=== PATIENT | female | born 1995 | race Caucasian/White ===

== ENCOUNTER 2019-06-03 08:50 | Inpatient (IN) | payer OTHER, BC ==
[2019-06-03] MEDS ORDERED: hydrOXYzine HCl 25 MG Tab PO PRN (10:31)
[2019-06-03] MEDS: Ondansetron 4 MG/2 ML SDV IVPUSH PRN ×2 (11:45→20:59)
[2019-06-03] MEDS ORDERED: Butorphanol 2 MG/ML SDV IVPUSH PRN ×2 (11:51)
[2019-06-03] MEDS ORDERED: Acetaminophen 325 MG Tab PO PRN (11:51)
[2019-06-03] MEDS ORDERED: Carboprost Tromethamine 250 MCG/1 ML Amp IM PRN (11:51)
[2019-06-03] MEDS ORDERED: Tranexamic Acid 1,000 MG in Sodium Chloride 0.9% 100 ML IV PRN (11:51)
[2019-06-03] MEDS ORDERED: Lidocaine 1% 30 ML SDV INJECT PRN (11:51)
[2019-06-03] MEDS ORDERED: Misoprostol 400 MCG (4 X 100 MCG TAB) RECTAL PRN (11:51)
[2019-06-03] MEDS ORDERED: Lactated Ringers 1,000 ML IV ONE (11:51)
[2019-06-03] MEDS ORDERED: Methylergonovine 0.2 MG/1 ML Amp IM PRN (11:51)
[2019-06-03] MEDS ORDERED: Sodium Chloride 0.9% 10 ML Syringe FLUSH PRN (11:51)
--- NOTE | 2019-06-03 11:59 | PCM.LDHP ---
L&D History of Present Illness - General Date of Service: 06/03/19 Admit Problem/Dx: Patient Status Order with Admit Dx/Problem 06/03/19 11:51 Patient Status [ADT] Routine Admission Diagnosis/Problem Admission Diagnosis/Problem care Source of Information: Patient History Limitations: Reports: No Limitations - History of Present Illness Introduction:: 24-year-old at 40w4d presented with increased contractions that started around 0700 this morning. They have been 2-3 minutes apart for the past 3 hours. They are painful. Baby has been active. No vaginal bleeding or leaking of fluid. No new headaches or vision changes has been uncomplicated - Related Data Allergies/Adverse Reactions: Allergies Allergy/AdvReac Type Severity Reaction Status Date / Time azithromycin [From Zithromax] Allergy Hives Verified 06/03/19 11:09 red dye Allergy Hives Verified 06/03/19 11:10 Sulfa (Sulfonamide Allergy Hives Verified 06/03/19 11:10 Antibiotics) Home Medications: Home Meds Ferrous Sulfate 325 mg PO DAILY 06/03/19 [History] Vit/FA/Fe Fumarate/Se [ MTR] 1 tab PO DAILY 06/03/19 [History] Past Medical History HEENT History: Reports: None Cardiovascular History: Reports: None Respiratory History: Reports: None Gastrointestinal History: Reports: None Genitourinary History: Reports: UTI, Recurrent [employer] History: Reports: Musculoskeletal History: Reports: None Neurological History: Reports: None Psychiatric History: Reports: Depression Endocrine/Metabolic History: Reports: None Hematologic History: Reports: Anemia Immunologic History: Reports: None Oncologic (Cancer) History: Reports: None Dermatologic History: Reports: Eczema, Other (See Below) Other Dermatologic History: acne - Infectious Disease History Infectious Disease History: Reports: None - Past Surgical History Head Surgeries/Procedures: Reports: None Social & Family History - Family History Family Medical History: Noncontributory - Tobacco Use Smoking Status *Q: Never Smoker Second Hand Smoke Exposure: No - Caffeine Use Caffeine Use: Reports: Coffee, Soda - Recreational Drug Use Recreational Drug Use: No H&P Review of Systems - Review of Systems: Review Of Systems: See Below General: Reports: No Symptoms HEENT: Reports: No Symptoms Pulmonary: Reports: No Symptoms Cardiovascular: Reports: No Symptoms Genitourinary: Reports: No Symptoms Musculoskeletal: Reports: Back Pain Skin: Reports: No Symptoms L&D Exam - Exam Exam: See Below - Vital Signs Vital Signs: Last Vital Signs Temp 36.9 C 06/03/19 11:00 Pulse 100 06/03/19 10:50 Resp 16 06/03/19 10:50 BP 117/73 06/03/19 10:50 Pulse Ox 98 06/03/19 10:50 Weight: 78.925 kg - OB Specific Contraction Duration (sec): 80-100 Contraction Frequency (min): 1-3 Contraction Intensity: Moderate Movement: Active Heart Tones: Present Heart Tones per Min: 125 Heart Rate (FHR) Variability: Moderate (6-25 bmp) Presentation: Vertex - Mcdonnell Score Mcdonnell Score Cervix Position: Midposition Mcdonnell Score Consistency: Soft Mcdonnell Score Effacement: >80% Mcdonnell Score Dilation: 3-4 cm Mcdonnell Score 's Station: -1 ,0 Mcdonnell Score Total: 10 - Exam General: Alert, Oriented HEENT: Conjunctiva Clear, Mucosa Moist & Plato Lungs: Clear to Auscultation, Normal Respiratory Effort Cardiovascular: Regular Rate, Regular Rhythm. No: Systolic Murmur, Diastolic Murmur Genitourinary: Normal external exam Back Exam: Normal Inspection Extremities: No Pedal Edema Skin: Warm, Dry, Intact - Patient Data Lab Results Last 24 hrs: Laboratory Results - last 24 hr 06/03/19 Range/Units 10:54 WBC 12.7 H (5.0-10.0) 10^3/uL RBC 4.25 (4.2-5.4) 10^6/uL Hgb 13.6 (12.0-16.0) g/dL Hct 39.0 (37.0-47.0) % MCV 91.8 (80-100) fL MCH 32.0 (27.0-34.0) pg MCHC 34.9 (33.0-35.0) g/dL Plt Count 242 (150-450) 10^3/uL Result Diagrams: 06/03/19 10:54 - Problem List (1) care in third trimester SNOMED Code(s): 198666811, 13815898, 28716236, 138332657, [id number] ICD Code: Z34.93 - ENCNTR FOR SUPRVSN OF NORMAL PREG, UNSP, THIRD TRIMESTER Status: Acute Current Visit: Yes (2) Active labor at term SNOMED Code(s): 82954961 ICD Code: [id number] - Status: Acute Current Visit: Yes Problem List Initiated/Reviewed/Updated: Yes Orders Last 24hrs: Active Orders 24 hr Category Date Time Status Patient Status [ADT] Routine ADT 06/03/19 11:51 Ordered Communication Order [RC] ASDIRECTED Care 06/03/19 11:51 Ordered Heart Tones [RC] PER UNIT ROUTINE Care 06/03/19 11:51 Ordered Nitrous Oxide Delivery [RC] ASDIRECTED Care 06/03/19 11:53 Ordered Notify Provider Vital Signs OB [RC] ASDIRECTED Care 06/03/19 11:51 Ordered Notify Provider [RC] PRN Care 06/03/19 11:51 Ordered OB Check [OM.PC] Click To Edit Care 06/03/19 09:26 Ordered OB Discontinue Nitrous Oxide [RC] ASDIRECTED Care 06/03/19 11:53 Ordered POC Labs [RC] ASDIRECTED Care 06/03/19 11:51 Ordered Pump Management, Intrathecal [RC] ASDIRECTED Care 06/03/19 11:23 Active Up ad Shaunna [RC] ASDIRECTED Care 06/03/19 11:51 Ordered Vital Signs [RC] PER UNIT ROUTINE Care 06/03/19 11:51 Ordered Clear Liquid Diet [DIET] Diet 06/03/19 Lunch Ordered Acetaminophen [Tylenol] Med 06/03/19 11:51 Ordered 650 mg PO Q4H PRN Butorphanol [Stadol] Med 06/03/19 11:51 Ordered 0.5 mg IVPUSH Q3H PRN Butorphanol [Stadol] Med 06/03/19 11:51 Ordered 1 mg IVPUSH Q3H PRN Carboprost Tromethamine [Hemabate DS] Med 06/03/19 11:51 Ordered 250 mcg IM ASDIRECTED PRN Lactated Ringers @ 125 MLS/HR(1000ml) Med 06/03/19 12:00 Ordered Lactated Ringers [Ringers, Lactated] 1,000 ml IV ASDIRECTED Lactated Ringers [Ringers, Lactated] 1,000 ml Med 06/03/19 11:51 Ordered IV BOLUS Lidocaine 1% [Xylocaine-MPF 1%] Med 06/03/19 11:51 Ordered 30 ml INJECT ASDIRECTED PRN Methylergonovine [Methergine] Med 06/03/19 11:51 Ordered 0.2 mg IM ASDIRECTED PRN Ondansetron [Zofran] Med 06/03/19 11:51 Ordered 4 mg IVPUSH Q4H PRN Oxytocin 30 Units in NS @ 2 MUNITS/MIN(500ml) Med 06/03/19 12:00 Ordered Oxytocin/Normal Saline [Pitocin in NS 30 UNIT/500 ML] 30 unit in 500 ml IV TITRATE Sodium Chloride 0.9% [Saline Flush] Med 06/03/19 11:51 Ordered 10 ml FLUSH ASDIRECTED PRN Tranexamic Acid [Cyklokapron] 1,000 mg Med 06/03/19 11:51 Ordered Sodium Chloride 0.9% [Normal Saline] 100 ml IV ONETIME fentaNYL [Sublimaze] Med 06/03/19 11:51 Ordered 100 mcg SUBCUT Q1H PRN hydrOXYzine HCL [Atarax] Med 06/03/19 10:31 Active 50 mg PO ONETIME PRN miSOPROStoL [Cytotec] Med 06/03/19 11:51 Ordered 800 mcg RECTAL ASDIRECTED PRN Saline Lock Insert [OM.PC] Routine Oth 06/03/19 11:51 Ordered Resuscitation Status Routine Resus Stat 06/03/19 11:51 Ordered Medication Orders Acetaminophen (Tylenol) 650 mg PO Q4H PRN PRN Reason: Pain (Mild 1-3) and fever Butorphanol Tartrate (Stadol) 0.5 mg IVPUSH Q3H PRN PRN Reason: Pain Butorphanol Tartrate (Stadol) 1 mg IVPUSH Q3H PRN PRN Reason: Pain Carboprost Tromethamine (Hemabate Ds) 250 mcg IM ASDIRECTED PRN PRN Reason: HEMORRHAGE Fentanyl (Sublimaze) 100 mcg SUBCUT Q1H PRN PRN Reason: Pain (moderate 4-6) Hydroxyzine HCl (Atarax) 50 mg PO ONETIME PRN PRN Reason: Anxiety Last Admin: 06/03/19 10:56 Dose: 50 mg Assessment/Plan Comment:: 24-year-old at 40w4d in active labor 1. Initiate routine intrapartum cares 2. Patient does desire intrathecal 3. AROM when able 4. Expectant management. Anticipate . Anamaria Gilmore MD
[2019-06-03] MEDS ORDERED: fentaNYL 100 MCG/2 ML SDV ONE ×3 (12:04→21:05)
[2019-06-03] MEDS ORDERED: Sodium Bicarbonate 4.2% 2.5 MEQ/5 ML SDV ONE ×3 (12:05→21:05)
[2019-06-03] MEDS ORDERED: EPINEPHrine 1 MG/1 ML Amp ONE ×3 (12:05→21:05)
[2019-06-03] MEDS: Lactated Ringers 1,000 ML IV SCH ×5 (12:30→21:30)
--- NOTE | 2019-06-03 12:30 | PCM.SN ---
- Free Text/Narrative Note: Intrathecal.Sitting position,sterile prep and drape. 1% lidocaine w bicarb for skinwheal to L2 L3 interspace, introducer, 24 ga pencan x 1. Pos CSF, neg heme, neg parasthesia. 0.1 ml pf 1:1000 epi, 0.4 ml ns, 20 mcg pf sufenta, 30 mcg pf fentanyl and 6 mg of 0.75% pf marcaine injected after CSF aspiration. Pt to L lateral position. Procedure time 1200 to 1230
[2019-06-03] MEDS: Oxytocin/Normal Saline 30 UNIT/500 ML BAG IV SCH (13:29)
--- NOTE | 2019-06-03 14:39 | PCM.PNLD ---
Labor Progress Note - VS & Meds Vital Signs: Last Vital Signs Temp 36.7 C 06/03/19 14:00 Pulse 74 06/03/19 14:15 Resp 16 06/03/19 14:00 BP 107/55 L 06/03/19 14:15 Pulse Ox 100 06/03/19 13:15 Active Medications: Current Medications Acetaminophen (Tylenol) 650 mg PO Q4H PRN PRN Reason: Pain (Mild 1-3) and fever Butorphanol Tartrate (Stadol) 0.5 mg IVPUSH Q3H PRN PRN Reason: Pain Butorphanol Tartrate (Stadol) 1 mg IVPUSH Q3H PRN PRN Reason: Pain Carboprost Tromethamine (Hemabate Ds) 250 mcg IM ASDIRECTED PRN PRN Reason: HEMORRHAGE Fentanyl (Sublimaze) 100 mcg SUBCUT Q1H PRN PRN Reason: Pain (moderate 4-6) Hydroxyzine HCl (Atarax) 50 mg PO ONETIME PRN PRN Reason: Anxiety Last Admin: 06/03/19 10:56 Dose: 50 mg Lactated Ringer's (Ringers, Lactated) 1,000 mls @ 125 mls/hr IV ASDIRECTED [facility]ISE Last Admin: 06/03/19 12:30 Dose: 125 mls/hr Oxytocin/Sodium Chloride (Pitocin In Ns 30 Unit/500 Ml) 30 unit in 500 mls @ 2 mls/hr IV TITRATE [facility]ISE; Protocol Last Titration: 06/03/19 13:45 Dose: 1 munits/min, 1 mls/hr Tranexamic Acid 1,000 mg/ (Sodium Chloride) 110 mls @ 660 mls/hr IV ONETIME PRN PRN Reason: Bleeding Lidocaine HCl (Xylocaine-Mpf 1%) 30 ml INJECT ASDIRECTED PRN PRN Reason: Perineal Repair Methylergonovine Maleate (Methergine) 0.2 mg IM ASDIRECTED PRN PRN Reason: Hemorrhage Misoprostol (Cytotec) 800 mcg RECTAL ASDIRECTED PRN PRN Reason: Hemorrhage Ondansetron HCl (Zofran) 4 mg IVPUSH Q4H PRN PRN Reason: Nausea/Vomiting Last Admin: 06/03/19 11:45 Dose: 4 mg Sodium Chloride (Saline Flush) 10 ml FLUSH ASDIRECTED PRN PRN Reason: Keep Vein Open Discontinued Medications Epinephrine HCl (Adrenalin) Confirm Administered Dose 1 mg .ROUTE .STK-MED ONE Stop: 06/03/19 12:06 Last Admin: 06/03/19 13:33 Dose: Not Given Fentanyl (Sublimaze) Confirm Administered Dose 100 mcg .ROUTE .STK-MED ONE Stop: 06/03/19 12:05 Last Admin: 06/03/19 13:33 Dose: Not Given Lactated Ringer's (Ringers, Lactated) 1,000 mls @ 999 mls/hr IV BOLUS ONE Stop: 06/03/19 12:51 Last Admin: 06/03/19 11:55 Dose: 999 mls/hr Sodium Bicarbonate (Sodium Bicarbonate 4.2%) Confirm Administered Dose 2.5 meq .ROUTE .STK-MED ONE Stop: 06/03/19 12:06 Last Admin: 06/03/19 13:34 Dose: Not Given Sufentanil Citrate (Sufenta) Confirm Administered Dose 50 mcg .ROUTE .STK-MED ONE Stop: 06/03/19 12:06 Last Admin: 06/03/19 13:34 Dose: Not Given - Uterine Contractions Uterine Monitoring Mode: External [place] Contraction Frequency (min): 1-3 Contraction Duration (sec): 80-90 Contraction Intensity: Moderate to Strong Uterine Resting Tone: Soft - Monitoring Heart Rate (FHR) Baseline: 125 Heart Rate (FHR) Variability: Moderate (6-25 bmp) Accelerations: Present, 10x10 (=/<32 wks) Decelerations: None Strip Review: Category I - Vaginal Exam Dilation (cm): 6 Effacement (Percent): 90 Station: -2 Cervical Position: Midposition Sterile Vaginal Exam Performed By: Anamaria Gilmore - Labor Progress (Free Text) Labor Progress: AROM attempted x 3 for small amount of blood tinged fluid. Bladder catheterized for 300 mL of clear urine. Patient can move legs but is still getting good relief from intrathecal at 1230. Continue current management.
[2019-06-03] MEDS ORDERED: ePHEDrine 50 MG/ML SDV ONE (17:00)
--- NOTE | 2019-06-03 17:06 | PCM.SN ---
- Free Text/Narrative Note: Intrathecal.Sitting position,sterile prep and drape. 1% lidocaine w bicarb for skinwheal to L2 L3 interspace, introducer, 24 ga pencan x 1. Pos CSF, neg heme, neg parasthesia. 0.1 ml pf 1:1000 epi, 0.4 ml ns, 20 mcg pf sufenta, 30 mcg pf fentanyl and 6 mg of 0.75% pf marcaine injected after CSF aspiration. Pt to L lateral position. Procedure time 1640 to 1710.
--- NOTE | 2019-06-03 17:34 | PCM.PNLD ---
Labor Progress Note - VS & Meds Vital Signs: Last Vital Signs Temp 36.7 C 06/03/19 14:00 Pulse 80 06/03/19 16:15 Resp 16 06/03/19 15:30 BP 106/54 L 06/03/19 16:15 Pulse Ox 100 06/03/19 13:15 Active Medications: Current Medications Acetaminophen (Tylenol) 650 mg PO Q4H PRN PRN Reason: Pain (Mild 1-3) and fever Butorphanol Tartrate (Stadol) 0.5 mg IVPUSH Q3H PRN PRN Reason: Pain Butorphanol Tartrate (Stadol) 1 mg IVPUSH Q3H PRN PRN Reason: Pain Carboprost Tromethamine (Hemabate Ds) 250 mcg IM ASDIRECTED PRN PRN Reason: HEMORRHAGE Fentanyl (Sublimaze) 100 mcg SUBCUT Q1H PRN PRN Reason: Pain (moderate 4-6) Hydroxyzine HCl (Atarax) 50 mg PO ONETIME PRN PRN Reason: Anxiety Last Admin: 06/03/19 10:56 Dose: 50 mg Lactated Ringer's (Ringers, Lactated) 1,000 mls @ 125 mls/hr IV ASDIRECTED [facility]ISE Last Admin: 06/03/19 16:27 Dose: 125 mls/hr Oxytocin/Sodium Chloride (Pitocin In Ns 30 Unit/500 Ml) 30 unit in 500 mls @ 2 mls/hr IV TITRATE [facility]ISE; Protocol Last Titration: 06/03/19 13:45 Dose: 1 munits/min, 1 mls/hr Tranexamic Acid 1,000 mg/ (Sodium Chloride) 110 mls @ 660 mls/hr IV ONETIME PRN PRN Reason: Bleeding Lidocaine HCl (Xylocaine-Mpf 1%) 30 ml INJECT ASDIRECTED PRN PRN Reason: Perineal Repair Methylergonovine Maleate (Methergine) 0.2 mg IM ASDIRECTED PRN PRN Reason: Hemorrhage Misoprostol (Cytotec) 800 mcg RECTAL ASDIRECTED PRN PRN Reason: Hemorrhage Ondansetron HCl (Zofran) 4 mg IVPUSH Q4H PRN PRN Reason: Nausea/Vomiting Last Admin: 06/03/19 11:45 Dose: 4 mg Sodium Chloride (Saline Flush) 10 ml FLUSH ASDIRECTED PRN PRN Reason: Keep Vein Open Discontinued Medications Ephedrine Sulfate (Ephedrine Sulfate) Confirm Administered Dose 50 mg .ROUTE .STK-MED ONE Stop: 06/03/19 17:01 Epinephrine HCl (Adrenalin) Confirm Administered Dose 1 mg .ROUTE .STK-MED ONE Stop: 06/03/19 12:06 Last Admin: 06/03/19 13:33 Dose: Not Given Epinephrine HCl (Adrenalin) Confirm Administered Dose 1 mg .ROUTE .STK-MED ONE Stop: 06/03/19 16:39 Fentanyl (Sublimaze) Confirm Administered Dose 100 mcg .ROUTE .STK-MED ONE Stop: 06/03/19 12:05 Last Admin: 06/03/19 13:33 Dose: Not Given Fentanyl (Sublimaze) Confirm Administered Dose 100 mcg .ROUTE .STK-MED ONE Stop: 06/03/19 16:39 Lactated Ringer's (Ringers, Lactated) 1,000 mls @ 999 mls/hr IV BOLUS ONE Stop: 06/03/19 12:51 Last Admin: 06/03/19 11:55 Dose: 999 mls/hr Sodium Bicarbonate (Sodium Bicarbonate 4.2%) Confirm Administered Dose 2.5 meq .ROUTE .STK-MED ONE Stop: 06/03/19 12:06 Last Admin: 06/03/19 13:34 Dose: Not Given Sodium Bicarbonate (Sodium Bicarbonate 4.2%) Confirm Administered Dose 2.5 meq .ROUTE .STK-MED ONE Stop: 06/03/19 16:40 Sufentanil Citrate (Sufenta) Confirm Administered Dose 50 mcg .ROUTE .STK-MED ONE Stop: 06/03/19 12:06 Last Admin: 06/03/19 13:34 Dose: Not Given Sufentanil Citrate (Sufenta) Confirm Administered Dose 50 mcg .ROUTE .STK-MED ONE Stop: 06/03/19 16:39 - Uterine Contractions Uterine Monitoring Mode: External [place], IUPC Contraction Frequency (min): 1-3 Contraction Duration (sec): 80-90 Contraction Intensity: Moderate to Strong Uterine Resting Tone: Soft - Monitoring Heart Rate (FHR) Baseline: 150 Heart Rate (FHR) Variability: Moderate (6-25 bmp) Accelerations: Present, 10x10 (=/<32 wks) Decelerations: None Strip Review: Category I - Vaginal Exam Dilation (cm): 6 Effacement (Percent): 90 Station: -2 Cervical Position: Midposition Sterile Vaginal Exam Performed By: Anamaria Gilmore - Labor Progress (Free Text) Labor Progress: Patient received 2nd intrathecal. Called by nurses for 4 minute deceleration into the 60s then in to the 90s for another couple of minutes. FHT then recovered. Cervical exam shows no change. IUPC was placed. Will monitor for 30 minutes to allow baby to recover. If needed, will start pitocin for augmentation. Will closely monitor.
[2019-06-03] MEDS: fentaNYL 100 MCG/2 ML SDV SUBCUT PRN ×2 (20:19→23:48)
--- NOTE | 2019-06-03 21:26 | PCM.SN ---
- Free Text/Narrative Note: Intrathecal.Sitting position,sterile prep and drape. 1% lidocaine w bicarb for skinwheal to L2 L3 interspace, introducer, 24 ga pencan x 1. Pos CSF, neg heme, neg parasthesia. 0.1 ml pf 1:1000 epi, 0.4 ml ns, 20 mcg pf sufenta, 30 mcg pf fentanyl and 6 mg of 0.75% pf marcaine injected after CSF aspiration. Pt to L lateral position. Procedure time 2104 to 2134
[2019-06-04] MEDS: fentaNYL 100 MCG/2 ML SDV SUBCUT PRN (01:36)
[2019-06-04] MEDS ORDERED: Benzocaine/Menthol 20%-0.5% Spray 56 GM Canister TOP PRN (02:13)
[2019-06-04] MEDS ORDERED: Simethicone 80 MG Tab.Chew PO PRN (02:13)
[2019-06-04] MEDS ORDERED: Oxytocin 10 Units/1 ML SDV IM PRN (02:13)
[2019-06-04] MEDS ORDERED: Ketorolac 30 MG/ML SDV IVPUSH ONE (02:15)
--- NOTE | 2019-06-04 02:16 | PCM.DEL ---
L & D Note - General Info Date of Service: 06/04/19 Mother's Due Date: 05/30/19 - Delivery Note Labor: Spontaneous, Induced by ARM Delivery Outcome: Livebirth Delivery Method: Spontaneous Vaginal Delivery-Single Delivery Mode: Vacuum Extraction Presentation: Vertex Nuchal Cord: None Anesthesia Type: Intrathecal (x3), Local, Nitrous Oxide Anesthetic: Lidocaine (Xylocaine) 1% Plain Local Anesthetic Volume: Other (15) Amniotic Fluid Description: Meconium Stained Episiotomy Type: None Laceration: 3rd Degree (Partial), Perineal Suture size: 3-0 Placenta: Intact, Spontaneous Cord: 3 Vessels Estimated Blood Loss: 300 Resuscitation Needed: Yes [place]: Suctioned, Bulb Syringe, Stimulated, Warmed, [place] Used, Warmer Used Provider: Anamaria Gilmore Score 1 min: 5 Score 5 min: 8 Delivery Comments (Free Text/Narrative):: Patient presented to L&D around 1000 on 06/03/2019 in early active labor. She progressed through labor requiring pitocin and AROM for augmentation. She received intrathecal x3 for pain control in addition to nitrous oxide and IV Fentanyl. Patient was noted to be completed at 0004 on 06/04/2019. Patient began pushing. Due to patient discomfort, multiple positions were used, including standing, crouching, side and lithotomy positions. Due to maternal fatigue, vacuum was applied at 0058 after verbal consent was obtained. Patient pushed well with contractions. 1st popoff at 0100. Patient was pushing well and had good descent of head so pushing continued without re-application of vacuum. At 0124, patient verbalized increased fatigue so vacuum was re- applied. Patient pushed well with good head descent and a viable male infant was delivered at 0129. Patient was initially placed on mother's chest but then was taken to the warmer for evaluation and resuscitation. Apgars were noted to be 5 and 8 at 1 and 5 minutes respectively. Placenta delivered spontaneously a short time later. It was noted to be intact. Uterus was noted to be firm and bleeding was appropriate. A partial 3rd degree perineal laceration was noted. This was repaired in the usual fashion, first reapproximating the muscle fibers, then completing the repair with 3-0 Vicryl. A rectal examination was performed and no abnormalities were noted. Bleeding was again assessed and noted to be appropriate. Total EBL = 300 mL. Patient tolerated the procedure well, and there were no immediate complications Induction Criteria - Augmentation Estimated Pelvis: Reports: Adequate Weight Estimated:: Reports: AGA Reassuring Monitoring Strip: Yes Absence of Tachy Systole: Yes Vacuum Extractor Progress Note - Alternative Labor Strategies Considered Alternative Labor Strategies Considered:: Reports: Yes Strategies Considered:: Reports: Contraction Intensity Adequate, Position Changes Used to Facilitate Rotation & Descent, Empty Bladder Indications:: Reports: Shortening of 2nd Stage for Maternal Benefit Time Out:: Reports: Yes - Patient Prepared Patient Prepared:: Reports: Yes Informed Consent:: Reports: Verbal Risks: Reports: Yes Risks Include:: Reports: Laceration, Shoulder Dystocia, Maternal Injury - Probability of Success High Probability of Success:: Reports: Yes Weight Estimated:: Reports: AGA Patient Diabetic:: Reports: No Pelvis Adequate:: Reports: Yes Asynclitic:: Reports: No Station:: 2+ - Application Time Maximum Application Time & Number of Pop-Offs Predetermined:: Reports: Yes Total Application Time (min): *max=20min: 6 Number of Times Cup Disengaged:: 1 Type of Vacuum Used:: Reports: Low profile Vacuum Extraction: Successful - Exit Strategy Exit strategy available:: Reports: Yes and resuscitation teams readily available:: Reports: Yes - General Info Date of Service: 06/14/19 - Patient Data Vitals - Most Recent: Last Vital Signs Temp 37.3 C 06/03/19 22:30 Pulse 87 06/03/19 22:45 Resp 16 06/03/19 22:45 BP 118/64 06/03/19 22:45 Pulse Ox 97 06/03/19 17:15 Weight - Most Recent: 78.925 kg I&O - Last 24 Hours: Intake & Output 06/03/19 06/03/19 06/04/19 14:59 22:59 06:59 Intake Total 1000 2000 Output Total 300 Balance 700 2000 Lab Results Last 24 Hours: Laboratory Results - last 24 hr 06/03/19 Range/Units 10:54 WBC 12.7 H (5.0-10.0) 10^3/uL RBC 4.25 (4.2-5.4) 10^6/uL Hgb 13.6 (12.0-16.0) g/dL Hct 39.0 (37.0-47.0) % MCV 91.8 (80-100) fL MCH 32.0 (27.0-34.0) pg MCHC 34.9 (33.0-35.0) g/dL Plt Count 242 (150-450) 10^3/uL Med Orders - Current: Current Medications Acetaminophen (Tylenol) 650 mg PO Q4H PRN PRN Reason: Pain (Mild 1-3) and fever Carboprost Tromethamine (Hemabate Ds) 250 mcg IM ASDIRECTED PRN PRN Reason: HEMORRHAGE Hydroxyzine HCl (Atarax) 50 mg PO ONETIME PRN PRN Reason: Anxiety Last Admin: 06/03/19 10:56 Dose: 50 mg Oxytocin/Sodium Chloride (Pitocin In Ns 30 Unit/500 Ml) 30 unit in 500 mls @ 2 mls/hr IV TITRATE [facility]; Protocol Last Titration: 06/03/19 22:10 Dose: 14 mls/hr Tranexamic Acid 1,000 mg/ (Sodium Chloride) 110 mls @ 660 mls/hr IV ONETIME PRN PRN Reason: Bleeding Methylergonovine Maleate (Methergine) 0.2 mg IM ASDIRECTED PRN PRN Reason: Hemorrhage Misoprostol (Cytotec) 800 mcg RECTAL ASDIRECTED PRN PRN Reason: Hemorrhage Ondansetron HCl (Zofran) 4 mg IVPUSH Q4H PRN PRN Reason: Nausea/Vomiting Last Admin: 06/03/19 20:59 Dose: 4 mg Sodium Chloride (Saline Flush) 10 ml FLUSH ASDIRECTED PRN PRN Reason: Keep Vein Open Discontinued Medications Butorphanol Tartrate (Stadol) 0.5 mg IVPUSH Q3H PRN PRN Reason: Pain Butorphanol Tartrate (Stadol) 1 mg IVPUSH Q3H PRN PRN Reason: Pain Ephedrine Sulfate (Ephedrine Sulfate) Confirm Administered Dose 50 mg .ROUTE .STK-MED ONE Stop: 06/03/19 17:01 Last Admin: 06/03/19 18:06 Dose: Not Given Epinephrine HCl (Adrenalin) Confirm Administered Dose 1 mg .ROUTE .STK-MED ONE Stop: 06/03/19 12:06 Last Admin: 06/03/19 13:33 Dose: Not Given Epinephrine HCl (Adrenalin) Confirm Administered Dose 1 mg .ROUTE .STK-MED ONE Stop: 06/03/19 16:39 Last Admin: 06/03/19 17:50 Dose: Not Given Epinephrine HCl (Adrenalin) Confirm Administered Dose 1 mg .ROUTE .STK-MED ONE Stop: 06/03/19 21:06 Fentanyl (Sublimaze) 100 mcg SUBCUT Q1H PRN PRN Reason: Pain (moderate 4-6) Last Admin: 06/04/19 01:36 Dose: 100 mcg Fentanyl (Sublimaze) Confirm Administered Dose 100 mcg .ROUTE .STK-MED ONE Stop: 06/03/19 12:05 Last Admin: 06/03/19 13:33 Dose: Not Given Fentanyl (Sublimaze) Confirm Administered Dose 100 mcg .ROUTE .STK-MED ONE Stop: 06/03/19 16:39 Last Admin: 06/03/19 17:50 Dose: Not Given Fentanyl (Sublimaze) Confirm Administered Dose 100 mcg .ROUTE .STK-MED ONE Stop: 06/03/19 21:06 Lactated Ringer's (Ringers, Lactated) 1,000 mls @ 999 mls/hr IV BOLUS ONE Stop: 06/03/19 12:51 Last Admin: 06/03/19 11:55 Dose: 999 mls/hr Lactated Ringer's (Ringers, Lactated) 1,000 mls @ 125 mls/hr IV ASDIRECTED [place] Last Admin: 06/03/19 21:30 Dose: 999 mls/hr Lidocaine HCl (Xylocaine-Mpf 1%) 30 ml INJECT ASDIRECTED PRN PRN Reason: Perineal Repair Sodium Bicarbonate (Sodium Bicarbonate 4.2%) Confirm Administered Dose 2.5 meq .ROUTE .STK-MED ONE Stop: 06/03/19 12:06 Last Admin: 06/03/19 13:34 Dose: Not Given Sodium Bicarbonate (Sodium Bicarbonate 4.2%) Confirm Administered Dose 2.5 meq .ROUTE .STK-MED ONE Stop: 06/03/19 16:40 Last Admin: 06/03/19 17:51 Dose: Not Given Sodium Bicarbonate (Sodium Bicarbonate 4.2%) Confirm Administered Dose 2.5 meq .ROUTE .STK-MED ONE Stop: 06/03/19 21:06 Sufentanil Citrate (Sufenta) Confirm Administered Dose 50 mcg .ROUTE .STK-MED ONE Stop: 06/03/19 12:06 Last Admin: 06/03/19 13:34 Dose: Not Given Sufentanil Citrate (Sufenta) Confirm Administered Dose 50 mcg .ROUTE .STK-MED ONE Stop: 06/03/19 16:39 Last Admin: 06/03/19 17:51 Dose: Not Given Sufentanil Citrate (Sufenta) Confirm Administered Dose 50 mcg .ROUTE .STK-MED ONE Stop: 06/03/19 21:06 - Problem List & Annotations (1) care in third trimester SNOMED Code(s): 603739940, 75588819, 22044616, 657304573, 741065322 Code(s): Z34.93 - ENCNTR FOR SUPRVSN OF NORMAL PREG, UNSP, THIRD TRIMESTER Status: Acute (2) Active labor at term SNOMED Code(s): 92616659 Code(s): GXJ7216 - Status: Acute (3) Vacuum-assisted vaginal delivery SNOMED Code(s): 07348606650843475 Code(s): Z37.9 - OUTCOME OF DELIVERY, UNSPECIFIED Status: Acute (4) Perineal laceration SNOMED Code(s): 632375269 Code(s): YXM1461 - Status: Acute Annotation/Comment:: Partial 3rd degree - Problem List Review Problem List Initiated/Reviewed/Updated: Yes - My Orders Last 24 Hours: My Active Orders 06/03/19 09:26 OB Check [OM.PC] Click To Edit 06/03/19 10:31 hydrOXYzine HCL [Atarax] 50 mg PO ONETIME PRN 06/03/19 11:51 Patient Status [ADT] Routine Notify Provider Vital Signs OB [RC] ASDIRECTED POC Labs [RC] ASDIRECTED Acetaminophen [Tylenol] 650 mg PO Q4H PRN Carboprost Tromethamine [Hemabate DS] 250 mcg IM ASDIRECTED PRN Methylergonovine [Methergine] 0.2 mg IM ASDIRECTED PRN Ondansetron [Zofran] 4 mg IVPUSH Q4H PRN Sodium Chloride 0.9% [Saline Flush] 10 ml FLUSH ASDIRECTED PRN Tranexamic Acid [Cyklokapron] 1,000 mg Sodium Chloride 0.9% [Normal Saline] 100 ml IV ONETIME miSOPROStoL [Cytotec] 800 mcg RECTAL ASDIRECTED PRN Saline Lock Insert [OM.PC] Routine Resuscitation Status Routine 06/03/19 11:53 Nitrous Oxide Delivery [RC] ASDIRECTED OB Discontinue Nitrous Oxide [RC] ASDIRECTED 06/03/19 12:00 Oxytocin/Normal Saline [Pitocin in NS 30 UNIT/500 ML] 30 unit in 500 ml IV TITRATE 06/03/19 14:43 Urinary Catheter Assessment [RC] .PRN 06/03/19 14:45 Insert [place] Catheter [Insert Urinary Catheter] [OM.PC] Q24H 06/03/19 20:21 Communication Order [RC] ROUTINE 06/04/19 02:13 Up ad [place] [RC] ASDIRECTED Vital Signs [RC] PFP Consult to Traffic Supervisor [CONS] Routine Acetaminophen/oxyCODONE [Percocet 325-5 MG] 1 tab PO Q8H PRN Benzocaine/Menthol [Dermoplast Pain Relief [place]] See Dose Instructions TOP Q4H PRN Ibuprofen [Motrin] 800 mg PO Q8H PRN Oxytocin [Pitocin] 10 unit IM ONETIME PRN Simethicone 80 mg PO Q4H PRN Assess Lochia [WOMSER] Per Unit Routine Assess Uterine Involution [WOMSER] Per Unit Routine Breast Pump [WOMSER] Per Unit Routine Ice Therapy [OM.PC] Per Unit Routine Perineal Care [OM.PC] Per Unit Routine Sitz Bath [OM.PC] Per Unit Routine 06/04/19 02:15 Ketorolac [Toradol] 60 mg IVPUSH ONETIME ONE hydrOXYzine HCL [Atarax] 50 mg PO Q8H PRN 06/04/19 02:16 witch Flash [Medi-Pads] See Dose Instructions TOP 6XDAY PRN 06/04/19 09:00 Docusate Sodium [Colace] 100 mg PO BID Vit with Ca/FA/Iron [ Plus Iron] 1 each PO DAILY 06/04/19 Breakfast Regular Diet [DIET] 06/05/19 07:00 CBC W/O DIFF,HEMOGRAM [HEME] Routine - Assessment Assessment:: 24-year-old now status post VAVD at 40w5d - Plan Plan:: 1. Initiate routine cares 2. Will allow oxycodone in small amounts due to significant tear 3. Colace 100 mg BID scheduled 4. Plans to breastfeed 5. Anticipate discharge 06/06/2019 Anamaria Gilmore MD
[2019-06-04] MEDS: Oxytocin/Normal Saline 30 UNIT/500 ML BAG IV SCH (03:38)
[2019-06-04] MEDS: Acetaminophen/oxyCODONE 325-5 MG Tab PO PRN ×3 (07:42→19:31)
[2019-06-04] MEDS: Prenatal Multivitamin with Calcium/Folic Acid/Iron Tab PO SCH (09:43)
[2019-06-04] MEDS: Docusate Sodium 100 MG Cap PO SCH ×2 (09:43→21:55)
[2019-06-04] MEDS: Ibuprofen 800 MG Tab PO PRN ×2 (13:59→21:55)
[2019-06-04] MEDS ORDERED: EPINEPHrine 1 MG/1 ML Amp ONE (14:01)
[2019-06-04] MEDS ORDERED: fentaNYL 100 MCG/2 ML SDV ITHECAL ONE ×2 (14:01→15:57)
[2019-06-04] MEDS ORDERED: Sodium Bicarbonate 4.2% 2.5 MEQ/5 ML SDV ONE ×2 (14:01→15:57)
[2019-06-04] MEDS ORDERED: EPINEPHrine 1 MG/1 ML Amp IV ONE (15:57)
[2019-06-04] MEDS: Cyclobenzaprine 10 MG Tab PO PRN (16:48)
[2019-06-04] MEDS: hydrOXYzine HCl 25 MG Tab PO PRN (22:01)
[2019-06-05] MEDS: Acetaminophen/oxyCODONE 325-5 MG Tab PO PRN ×4 (01:26→18:25)
[2019-06-05] MEDS: Ibuprofen 800 MG Tab PO PRN ×3 (05:36→22:38)
[2019-06-05] MEDS: Cyclobenzaprine 10 MG Tab PO PRN (09:34)
[2019-06-05] MEDS: Prenatal Multivitamin with Calcium/Folic Acid/Iron Tab PO SCH (09:35)
[2019-06-05] MEDS: Docusate Sodium 100 MG Cap PO SCH ×2 (09:35→22:38)
[2019-06-05] MEDS: Sertraline 50 MG Tab PO SCH (12:45)
[2019-06-05] MEDS ORDERED: Measles, Mumps & Rubella Vaccine 0.5 ML SDV SUBCUT ONE (13:41)
[2019-06-05] MEDS: hydrOXYzine HCl 25 MG Tab PO PRN (22:38)
--- NOTE | 2019-06-05 23:53 | PCM.PNPP ---
- General Info Date of Service: 06/05/19 Subjective Update: PPD#1. Patient is doing fairly well. She does complain of perineal pain that is well controlled. She also reports upper back/shoulder pain. Vaginal bleeding has decreased over the past 24 hours. Denies fever or chills. Ambulating without difficulty. Urinating and passing gas. Tolerating a general diet. is going well. No concerns per patient or per nursing staff. Functional Status: Reports: Pain Controlled, Tolerating Diet, Ambulating, Urinating. Denies: New Symptoms - Review of Systems General: Reports: No Symptoms HEENT: Reports: No Symptoms Pulmonary: Reports: No Symptoms Cardiovascular: Reports: No Symptoms Gastrointestinal: Reports: No Symptoms Genitourinary: Reports: No Symptoms Musculoskeletal: Reports: Neck Pain, Shoulder Pain, Back Pain Skin: Reports: No Symptoms Neurological: Reports: No Symptoms - General Info Date of Service: 06/05/19 - Patient Data Vital Signs - Most Recent: Last Vital Signs Temp 37.5 C 06/05/19 20:00 Pulse 89 06/05/19 20:00 Resp 16 06/05/19 20:00 BP 118/77 06/05/19 20:00 Pulse Ox 97 06/03/19 17:15 Weight - Most Recent: 78.925 kg Lab Results - Last 24 Hours: Laboratory Results - last 24 hr 06/05/19 Range/Units 06:05 WBC 12.6 H (5.0-10.0) 10^3/uL RBC 3.27 L (4.2-5.4) 10^6/uL Hgb 10.3 L D (12.0-16.0) g/dL Hct 31.4 L (37.0-47.0) % MCV 96.0 D (80-100) fL MCH 31.5 (27.0-34.0) pg MCHC 32.8 L (33.0-35.0) g/dL Plt Count 188 (150-450) 10^3/uL Med Orders - Current: Current Medications Acetaminophen (Tylenol) 650 mg PO Q4H PRN PRN Reason: Pain (Mild 1-3) and fever Benzocaine/Menthol (Dermoplast Pain Relief [place]) 0 gm TOP Q4H PRN PRN Reason: Perineal comfort measures Last Admin: 06/04/19 02:55 Dose: 1 spray Carboprost Tromethamine (Hemabate Ds) 250 mcg IM ASDIRECTED PRN PRN Reason: HEMORRHAGE Cyclobenzaprine HCl (Flexeril) 5 mg PO Q12H PRN PRN Reason: Pain Last Admin: 06/05/19 09:34 Dose: 5 mg Docusate Sodium (Colace) 100 mg PO BID [facility] Last Admin: 06/05/19 22:38 Dose: 100 mg Hydroxyzine HCl (Atarax) 50 mg PO Q8H PRN PRN Reason: Anxiety Last Admin: 06/05/19 22:38 Dose: 50 mg Oxytocin/Sodium Chloride (Pitocin In Ns 30 Unit/500 Ml) 30 unit in 500 mls @ 2 mls/hr IV TITRATE [facility]; Protocol Last Titration: 06/04/19 05:45 Dose: 0 mls/hr Tranexamic Acid 1,000 mg/ (Sodium Chloride) 110 mls @ 660 mls/hr IV ONETIME PRN PRN Reason: Bleeding Ibuprofen (Motrin) 800 mg PO Q8H PRN PRN Reason: Mild Pain or Fever Last Admin: 06/05/19 22:38 Dose: 800 mg Methylergonovine Maleate (Methergine) 0.2 mg IM ASDIRECTED PRN PRN Reason: Hemorrhage Misoprostol (Cytotec) 800 mcg RECTAL ASDIRECTED PRN PRN Reason: Hemorrhage Ondansetron HCl (Zofran) 4 mg IVPUSH Q4H PRN PRN Reason: Nausea/Vomiting Last Admin: 06/03/19 20:59 Dose: 4 mg Oxycodone/Acetaminophen (Percocet 325-5 Mg) 1 tab PO Q4H PRN PRN Reason: Pain (moderate 4-6) Last Admin: 06/05/19 18:25 Dose: 1 tab Oxytocin (Pitocin) 10 unit IM ONETIME PRN PRN Reason: Bleeding Prenat Multivit/[place]/Iron/Folic Ac ( Plus Iron) 1 each PO DAILY [facility] Last Admin: 06/05/19 09:35 Dose: 1 each Sertraline HCl (Zoloft) 25 mg PO DAILY [facility] Last Admin: 06/05/19 12:45 Dose: Not Given Simethicone (Simethicone) 80 mg PO Q4H PRN PRN Reason: Gas Sodium Chloride (Saline Flush) 10 ml FLUSH ASDIRECTED PRN PRN Reason: Keep Vein Open Witch Jordyn (Medi-Pads) 0 each TOP 6XDAY PRN PRN Reason: Hemorrhoids Last Admin: 06/04/19 02:54 Dose: 1 pad Discontinued Medications Butorphanol Tartrate (Stadol) 0.5 mg IVPUSH Q3H PRN PRN Reason: Pain Butorphanol Tartrate (Stadol) 1 mg IVPUSH Q3H PRN PRN Reason: Pain Ephedrine Sulfate (Ephedrine Sulfate) Confirm Administered Dose 50 mg .ROUTE .STK-MED ONE Stop: 06/03/19 17:01 Last Admin: 06/03/19 18:06 Dose: Not Given Epinephrine HCl (Adrenalin) Confirm Administered Dose 1 mg .ROUTE .STK-MED ONE Stop: 06/03/19 12:06 Last Admin: 06/03/19 13:33 Dose: Not Given Epinephrine HCl (Adrenalin) Confirm Administered Dose 1 mg .ROUTE .STK-MED ONE Stop: 06/03/19 16:39 Last Admin: 06/03/19 17:50 Dose: Not Given Epinephrine HCl (Adrenalin) Confirm Administered Dose 1 mg .ROUTE .STK-MED ONE Stop: 06/03/19 21:06 Last Admin: 06/04/19 03:50 Dose: Not Given Epinephrine HCl (Adrenalin) 0.1 mg .XX .STK-MED ONE Stop: 06/04/19 14:02 Epinephrine HCl (Adrenalin) 0.1 mg IV .STK-MED ONE Stop: 06/04/19 15:58 Fentanyl (Sublimaze) 100 mcg SUBCUT Q1H PRN PRN Reason: Pain (moderate 4-6) Last Admin: 06/04/19 01:36 Dose: 100 mcg Fentanyl (Sublimaze) Confirm Administered Dose 100 mcg .ROUTE .STK-MED ONE Stop: 06/03/19 12:05 Last Admin: 06/03/19 13:33 Dose: Not Given Fentanyl (Sublimaze) Confirm Administered Dose 100 mcg .ROUTE .STK-MED ONE Stop: 06/03/19 16:39 Last Admin: 06/03/19 17:50 Dose: Not Given Fentanyl (Sublimaze) Confirm Administered Dose 100 mcg .ROUTE .STK-MED ONE Stop: 06/03/19 21:06 Last Admin: 06/04/19 03:50 Dose: Not Given Fentanyl (Sublimaze) 30 mcg [place] .STK-MED ONE Stop: 06/04/19 14:02 Fentanyl (Sublimaze) 30 mcg [place] .STK-MED ONE Stop: 06/04/19 15:58 Hydroxyzine HCl (Atarax) 50 mg PO ONETIME PRN PRN Reason: Anxiety Last Admin: 06/03/19 10:56 Dose: 50 mg Lactated Ringer's (Ringers, Lactated) 1,000 mls @ 999 mls/hr IV BOLUS ONE Stop: 06/03/19 12:51 Last Admin: 06/03/19 11:55 Dose: 999 mls/hr Lactated Ringer's (Ringers, Lactated) 1,000 mls @ 125 mls/hr IV ASDIRECTED [facility] Last Admin: 06/03/19 21:30 Dose: 999 mls/hr Ketorolac Tromethamine (Toradol) 60 mg IVPUSH ONETIME ONE Stop: 06/04/19 02:16 Last Admin: 06/04/19 02:56 Dose: 60 mg Lidocaine HCl (Xylocaine-Mpf 1%) 30 ml INJECT ASDIRECTED PRN PRN Reason: Perineal Repair Last Admin: 06/04/19 01:35 Dose: 15 ml Measles/Mumps/Rubella Vaccine Live (M-M-R Ii Vaccine) 0.5 ml SUBCUT .ONCE ONE Stop: 06/05/19 13:42 Last Admin: 06/05/19 15:12 Dose: 0.5 ml Oxycodone/Acetaminophen (Percocet 325-5 Mg) 1 tab PO Q8H PRN PRN Reason: Pain (moderate 4-6) Last Admin: 06/04/19 15:21 Dose: 1 tab Sodium Bicarbonate (Sodium Bicarbonate 4.2%) Confirm Administered Dose 2.5 meq .ROUTE .STK-MED ONE Stop: 06/03/19 12:06 Last Admin: 06/03/19 13:34 Dose: Not Given Sodium Bicarbonate (Sodium Bicarbonate 4.2%) Confirm Administered Dose 2.5 meq .ROUTE .STK-MED ONE Stop: 06/03/19 16:40 Last Admin: 06/03/19 17:51 Dose: Not Given Sodium Bicarbonate (Sodium Bicarbonate 4.2%) Confirm Administered Dose 2.5 meq .ROUTE .STK-MED ONE Stop: 06/03/19 21:06 Last Admin: 06/04/19 03:50 Dose: Not Given Sodium Bicarbonate (Sodium Bicarbonate 4.2%) 0.5 meq .XX .STK-MED ONE Stop: 06/04/19 14:02 Sodium Bicarbonate (Sodium Bicarbonate 4.2%) 0.5 meq .XX .STK-MED ONE Stop: 06/04/19 15:58 Sufentanil Citrate (Sufenta) Confirm Administered Dose 50 mcg .ROUTE .STK-MED ONE Stop: 06/03/19 12:06 Last Admin: 06/03/19 13:34 Dose: Not Given Sufentanil Citrate (Sufenta) Confirm Administered Dose 50 mcg .ROUTE .STK-MED ONE Stop: 06/03/19 16:39 Last Admin: 06/03/19 17:51 Dose: Not Given Sufentanil Citrate (Sufenta) Confirm Administered Dose 50 mcg .ROUTE .STK-MED ONE Stop: 06/03/19 21:06 Last Admin: 06/04/19 03:50 Dose: Not Given Sufentanil Citrate (Sufenta) 20 mcg [place]HE[place] .STK-MED ONE Stop: 06/04/19 14:02 Sufentanil Citrate (Sufenta) 20 mcg [place]HE[place] .STK-MED ONE Stop: 06/04/19 15:58 - Infant Interaction Disposition, : in Room with Family Interaction: Holding Infant Feeding: Breastfed Infant; Nursed Well, Continues to Breastfeed Support Person: Significant Other - Recovery Exam Fundal Tone: Firm Fundal Level: 2 Fingerbreadths Below Umbilicus Fundal Placement: Midline Lochia Amount: Small Lochia Color: Rubra/Red Perineum Description: Intact, Minimal Bruising/Swelling Episiotomy/Laceration: Approximated Bladder Status: Nonpalpable Urinary Elimination: Voided - Exam General: Alert HEENT: Pupils Equal Neck: Supple Lungs: Clear to Auscultation, Normal Respiratory Effort Cardiovascular: Regular Rate, Regular Rhythm, No Murmurs GI/Abdominal Exam: Soft, Non-Tender Skin: Warm, Dry, Intact - Problem List & Annotations (1) care in third trimester SNOMED Code(s): 288636791, 65334691, 96291580, 291893621, 426508889 Code(s): Z34.93 - ENCNTR FOR SUPRVSN OF NORMAL PREG, UNSP, THIRD TRIMESTER Status: Acute (2) Active labor at term SNOMED Code(s): 64984903 Code(s): GKJ5500 - Status: Acute (3) Perineal laceration SNOMED Code(s): 077534328 Code(s): ETA0920 - Status: Acute Annotation/Comment:: Partial 3rd degree (4) Vacuum-assisted vaginal delivery SNOMED Code(s): 94702995492554445 Code(s): Z37.9 - OUTCOME OF DELIVERY, UNSPECIFIED Status: Acute - Problem List Review Problem List Initiated/Reviewed/Updated: Yes - My Orders Last 24 Hours: My Active Orders 06/05/19 09:00 Sertraline [Zoloft] 25 mg PO DAILY 06/05/19 13:43 Vaccines to be Administered [RC] PER UNIT ROUTINE - Assessment Assessment:: 24-year-old, now , PPD#1 status post VAVD at 40w5d - Plan Plan:: 1. Continue routine orders 2. is going well. 3. Colace 100 mg BID for 3rd degree tear to avoid constipation. Will continue vitamin, but not iron to avoid constipation 4. Anticipate discharge 06/06/2019 Anamaria Gilmore MD
[2019-06-06] MEDS: Acetaminophen/oxyCODONE 325-5 MG Tab PO PRN ×3 (05:06→14:15)
[2019-06-06] MEDS: Ibuprofen 800 MG Tab PO PRN ×2 (06:25→14:14)
[2019-06-06] MEDS: Cyclobenzaprine 10 MG Tab PO PRN (06:28)
[2019-06-06] MEDS: Prenatal Multivitamin with Calcium/Folic Acid/Iron Tab PO SCH (09:02)
[2019-06-06] MEDS: Docusate Sodium 100 MG Cap PO SCH (09:03)
[2019-06-06] MEDS: Sertraline 50 MG Tab PO SCH (09:03)
--- NOTE | 2019-06-06 13:17 | PCM.DCSUM1 ---
Discharge Summary - Hospital Course Free Text/Narrative:: 24-year-old now PPD#2 status post VAVD at 40w5d Diagnosis: Stroke: No - Discharge Data Discharge Date: 06/06/19 Discharge Disposition: Home, Self-Care 01 Condition: Good - Referral to Home Health Primary Care Physician: Francoise Doyle MD - Discharge Diagnosis/Problem(s) (1) care in third trimester SNOMED Code(s): 013224616, [id number], [id number], [id number], [id number] ICD Code: Z34.93 - ENCNTR FOR SUPRVSN OF NORMAL PREG, UNSP, THIRD TRIMESTER Status: Acute (2) Active labor at term SNOMED Code(s): 37115198 ICD Code: [id number] - Status: Acute - Patient Summary/Data Operative Procedure(s) Performed: VAVD Complications: None Consults: Consultations 06/04/19 02:13 Consult to Pool Hand [CONS] Routine Labs Pending at D/C: None Recommended Follow-up Testing/Procedures: None Planned Operative Procedure(s) after DC: None Hospital Course: Please see subjective section - Patient Instructions Diet: Regular Diet as Tolerated Activity: As Tolerated, No Lifting Over 20 Pounds Driving: Do Not Drive (while taking pain medication) Showering/Bathing: May Shower Notify Provider of: Fever, Increased Pain, Swelling and Redness, Drainage - Discharge Plan *PRESCRIPTION DRUG MONITORING PROGRAM REVIEWED*: No *COPY OF PRESCRIPTION DRUG MONITORING REPORT IN PATIENT JAY: No Home Medications: Home Meds Vit/FA/Fe Fumarate/Se [ MTR] 1 tab PO DAILY 06/03/19 [History] Acetaminophen [Tylenol] 650 mg PO Q4H PRN tablet 06/06/19 [Rx] Acetaminophen/oxyCODONE [Percocet 325-5 MG] 1 tab PO Q4H PRN tablet 06/06/19 [ Rx] Docusate Sodium [Colace] 100 mg PO BID cap 06/06/19 [Rx] Ibuprofen [Motrin] 800 mg PO Q8H PRN tablet 06/06/19 [Rx] Sertraline [Zoloft] 25 mg PO DAILY tablet 06/06/19 [Rx] Patient Handouts: Vaginal Delivery, Care of a Perineal Tear Referrals: Anamaria Gilmroe MD [Physician] - (Please schedule 6 week appointment. ) - Discharge Summary/Plan Comment DC Time >30 min.: No Discharge Summary/Plan Comment: Discharge home today. As patient continues to have quite significant intermittent pain, will send home with 10 tabs of Percocet. Patient advised that this will not be refilled. Continue colace BID for at least 4 weeks then decrease as tolerated. Follow-up in 6-8 weeks for routine visit. Reasons to return to [facility] sooner or to present to the ED were reviewed, and all questions were answered. - General Info Date of Service: 06/06/19 Subjective Update: PPD#2. Patient is doing well. Tolerating a general diet. Pain has improved but patient has still needed occasional oxycodone. Ambulating well. Tolerating a general diet. Voiding and stooling. well. No concerns per patient or per nursing staff. - Review of Systems General: Reports: Fatigue HEENT: Reports: No Symptoms Pulmonary: Reports: No Symptoms Cardiovascular: Reports: No Symptoms Gastrointestinal: Reports: No Symptoms Genitourinary: Reports: No Symptoms Musculoskeletal: Reports: Neck Pain, Shoulder Pain, Back Pain Skin: Reports: No Symptoms Neurological: Reports: No Symptoms - Patient Data Vitals - Most Recent: Last Vital Signs Temp 37.2 C 06/06/19 09:20 Pulse 70 06/06/19 09:20 Resp 16 06/06/19 09:20 BP 119/75 06/06/19 09:20 Pulse Ox 97 06/03/19 17:15 Weight - Most Recent: 78.925 kg Med Orders - Current: Current Medications Acetaminophen (Tylenol) 650 mg PO Q4H PRN PRN Reason: Pain (Mild 1-3) and fever Benzocaine/Menthol (Dermoplast Pain Relief Purmela) 0 gm TOP Q4H PRN PRN Reason: Perineal comfort measures Last Admin: 06/04/19 02:55 Dose: 1 spray Carboprost Tromethamine (Hemabate Ds) 250 mcg IM ASDIRECTED PRN PRN Reason: HEMORRHAGE Cyclobenzaprine HCl (Flexeril) 5 mg PO Q12H PRN PRN Reason: Pain Last Admin: 06/06/19 06:28 Dose: 5 mg Docusate Sodium (Colace) 100 mg PO BID [facility] Last Admin: 06/06/19 09:03 Dose: 100 mg Hydroxyzine HCl (Atarax) 50 mg PO Q8H PRN PRN Reason: Anxiety Last Admin: 06/05/19 22:38 Dose: 50 mg Oxytocin/Sodium Chloride (Pitocin In Ns 30 Unit/500 Ml) 30 unit in 500 mls @ 2 mls/hr IV TITRATE [facility]; Protocol Last Titration: 06/04/19 05:45 Dose: 0 mls/hr Tranexamic Acid 1,000 mg/ (Sodium Chloride) 110 mls @ 660 mls/hr IV ONETIME PRN PRN Reason: Bleeding Ibuprofen (Motrin) 800 mg PO Q8H PRN PRN Reason: Mild Pain or Fever Last Admin: 06/06/19 06:25 Dose: 800 mg Methylergonovine Maleate (Methergine) 0.2 mg IM ASDIRECTED PRN PRN Reason: Hemorrhage Misoprostol (Cytotec) 800 mcg RECTAL ASDIRECTED PRN PRN Reason: Hemorrhage Ondansetron HCl (Zofran) 4 mg IVPUSH Q4H PRN PRN Reason: Nausea/Vomiting Last Admin: 06/03/19 20:59 Dose: 4 mg Oxycodone/Acetaminophen (Percocet 325-5 Mg) 1 tab PO Q4H PRN PRN Reason: Pain (moderate 4-6) Last Admin: 06/06/19 09:03 Dose: 1 tab Oxytocin (Pitocin) 10 unit IM ONETIME PRN PRN Reason: Bleeding Prenat Multivit/Ipava/Iron/Folic Ac ( Plus Iron) 1 each PO DAILY [facility] Last Admin: 06/06/19 09:02 Dose: 1 each Sertraline HCl (Zoloft) 25 mg PO DAILY [facility] Last Admin: 06/06/19 09:03 Dose: Not Given Simethicone (Simethicone) 80 mg PO Q4H PRN PRN Reason: Gas Sodium Chloride (Saline Flush) 10 ml FLUSH ASDIRECTED PRN PRN Reason: Keep Vein Open Witch Jordyn (Medi-Pads) 0 each TOP 6XDAY PRN PRN Reason: Hemorrhoids Last Admin: 06/04/19 02:54 Dose: 1 pad Discontinued Medications Butorphanol Tartrate (Stadol) 0.5 mg IVPUSH Q3H PRN PRN Reason: Pain Butorphanol Tartrate (Stadol) 1 mg IVPUSH Q3H PRN PRN Reason: Pain Ephedrine Sulfate (Ephedrine Sulfate) Confirm Administered Dose 50 mg .ROUTE .STK-MED ONE Stop: 06/03/19 17:01 Last Admin: 06/03/19 18:06 Dose: Not Given Epinephrine HCl (Adrenalin) Confirm Administered Dose 1 mg .ROUTE .STK-MED ONE Stop: 06/03/19 12:06 Last Admin: 06/03/19 13:33 Dose: Not Given Epinephrine HCl (Adrenalin) Confirm Administered Dose 1 mg .ROUTE .STK-MED ONE Stop: 06/03/19 16:39 Last Admin: 06/03/19 17:50 Dose: Not Given Epinephrine HCl (Adrenalin) Confirm Administered Dose 1 mg .ROUTE .STK-MED ONE Stop: 06/03/19 21:06 Last Admin: 06/04/19 03:50 Dose: Not Given Epinephrine HCl (Adrenalin) 0.1 mg .XX .STK-MED ONE Stop: 06/04/19 14:02 Epinephrine HCl (Adrenalin) 0.1 mg IV .STK-MED ONE Stop: 06/04/19 15:58 Fentanyl (Sublimaze) 100 mcg SUBCUT Q1H PRN PRN Reason: Pain (moderate 4-6) Last Admin: 06/04/19 01:36 Dose: 100 mcg Fentanyl (Sublimaze) Confirm Administered Dose 100 mcg .ROUTE .STK-MED ONE Stop: 06/03/19 12:05 Last Admin: 06/03/19 13:33 Dose: Not Given Fentanyl (Sublimaze) Confirm Administered Dose 100 mcg .ROUTE .STK-MED ONE Stop: 06/03/19 16:39 Last Admin: 06/03/19 17:50 Dose: Not Given Fentanyl (Sublimaze) Confirm Administered Dose 100 mcg .ROUTE .STK-MED ONE Stop: 06/03/19 21:06 Last Admin: 06/04/19 03:50 Dose: Not Given Fentanyl (Sublimaze) 30 mcg ITHECAL .STK-MED ONE Stop: 06/04/19 14:02 Fentanyl (Sublimaze) 30 mcg ITHECAL .STK-MED ONE Stop: 06/04/19 15:58 Hydroxyzine HCl (Atarax) 50 mg PO ONETIME PRN PRN Reason: Anxiety Last Admin: 06/03/19 10:56 Dose: 50 mg Lactated Ringer's (Ringers, Lactated) 1,000 mls @ 999 mls/hr IV BOLUS ONE Stop: 06/03/19 12:51 Last Admin: 06/03/19 11:55 Dose: 999 mls/hr Lactated Ringer's (Ringers, Lactated) 1,000 mls @ 125 mls/hr IV ASDIRECTED [facility] Last Admin: 06/03/19 21:30 Dose: 999 mls/hr Ketorolac Tromethamine (Toradol) 60 mg IVPUSH ONETIME ONE Stop: 06/04/19 02:16 Last Admin: 06/04/19 02:56 Dose: 60 mg Lidocaine HCl (Xylocaine-Mpf 1%) 30 ml INJECT ASDIRECTED PRN PRN Reason: Perineal Repair Last Admin: 06/04/19 01:35 Dose: 15 ml Measles/Mumps/Rubella Vaccine Live (M-M-R Ii Vaccine) 0.5 ml SUBCUT .ONCE ONE Stop: 06/05/19 13:42 Last Admin: 06/05/19 15:12 Dose: 0.5 ml Oxycodone/Acetaminophen (Percocet 325-5 Mg) 1 tab PO Q8H PRN PRN Reason: Pain (moderate 4-6) Last Admin: 06/04/19 15:21 Dose: 1 tab Sodium Bicarbonate (Sodium Bicarbonate 4.2%) Confirm Administered Dose 2.5 meq .ROUTE .STK-MED ONE Stop: 06/03/19 12:06 Last Admin: 06/03/19 13:34 Dose: Not Given Sodium Bicarbonate (Sodium Bicarbonate 4.2%) Confirm Administered Dose 2.5 meq .ROUTE .STK-MED ONE Stop: 06/03/19 16:40 Last Admin: 06/03/19 17:51 Dose: Not Given Sodium Bicarbonate (Sodium Bicarbonate 4.2%) Confirm Administered Dose 2.5 meq .ROUTE .STK-MED ONE Stop: 06/03/19 21:06 Last Admin: 06/04/19 03:50 Dose: Not Given Sodium Bicarbonate (Sodium Bicarbonate 4.2%) 0.5 meq .XX .STK-MED ONE Stop: 06/04/19 14:02 Sodium Bicarbonate (Sodium Bicarbonate 4.2%) 0.5 meq .XX .STK-MED ONE Stop: 06/04/19 15:58 Sufentanil Citrate (Sufenta) Confirm Administered Dose 50 mcg .ROUTE .STK-MED ONE Stop: 06/03/19 12:06 Last Admin: 06/03/19 13:34 Dose: Not Given Sufentanil Citrate (Sufenta) Confirm Administered Dose 50 mcg .ROUTE .STK-MED ONE Stop: 06/03/19 16:39 Last Admin: 06/03/19 17:51 Dose: Not Given Sufentanil Citrate (Sufenta) Confirm Administered Dose 50 mcg .ROUTE .STK-MED ONE Stop: 06/03/19 21:06 Last Admin: 06/04/19 03:50 Dose: Not Given Sufentanil Citrate (Sufenta) 20 mcg ITHECAL .STK-MED ONE Stop: 06/04/19 14:02 Sufentanil Citrate (Sufenta) 20 mcg ITHECAL .STK-MED ONE Stop: 06/04/19 15:58 - Exam General: Reports: Alert, Oriented Lungs: Reports: Clear to Auscultation, Normal Respiratory Effort Cardiovascular: Reports: Regular Rate, Regular Rhythm, No Murmurs GI/Abdominal Exam: Soft, Non-Tender Back Exam: Reports: Normal Inspection Extremities: Pedal Edema (Trace bilaterally) Skin: Reports: Warm, Dry, Intact
== END 2019-06-06 14:28 | disposition home or self-care (01) | DRG 768 ==
LOC: DL.OBCHECK 08:50 → UNDOADMOB 10:40 → DL.OB 10:40 → OBSVTOIN 06-04 01:29
PROVIDERS: ADMIT Family Medicine; ATTEND Family Medicine
PROC: 10D07Z6 Extraction of Products of Conception, Vacuum, Via Natural or Artificial Opening (ICD-10-PCS; principal; 2019-06-04)
PROC: 10H07YZ Insertion of Other Device into Products of Conception, Via Natural or Artificial Opening (ICD-10-PCS; 2019-06-04)
PROC: 0DQR0ZZ Repair Anal Sphincter, Open Approach (ICD-10-PCS; 2019-06-04)
PROC: 10907ZC Drainage of Amniotic Fluid, Therapeutic from Products of Conception, Via Natural or Artificial Opening (ICD-10-PCS; 2019-06-04)
PROC: 3E0R3BZ Introduction of Anesthetic Agent into Spinal Canal, Percutaneous Approach (ICD-10-PCS; 2019-06-04)
DX: O48.0 Post-term pregnancy (principal); Z37.0 Single live birth; O70.20 Third degree perineal laceration during delivery, unspecified; O76 Abnormality in fetal heart rate and rhythm complicating labor and delivery; Z3A.40 40 weeks gestation of pregnancy; Z88.1 Allergy status to other antibiotic agents; Z88.2 Allergy status to sulfonamides; Z79.899 Other long term (current) drug therapy; O77.0 Labor and delivery complicated by meconium in amniotic fluid
CPT/HCPCS: 36415; 51701; 59025; 59409; 85027; 90471; 90707; A9270-GY; G0010; J0171; J1885; J2001; J2405; J2590; J3010; J7120